=== PATIENT | male | born 1985 | race African-American/Black ===

== ENCOUNTER 2016-08-20 18:54 | Emergency (ER) | payer SELFPAY ==
[~2016-08-20] VITALS: Ht 185.4 cm; Wt 100.0 kg
[2016-08-20 19:52] VITALS: BP 130/83
[2016-08-20] MEDS ORDERED: DEXAMETHASONE SOD PHOS 4 MG/ML 5 ML VIAL IM ONE (20:15)
== END 2016-08-20 20:31 | disposition home or self-care (01) ==
LOC: EMS 18:57
DX: J40 Bronchitis, not specified as acute or chronic (principal); F17.200 Nicotine dependence, unspecified, uncomplicated; F12.90 Cannabis use, unspecified, uncomplicated; Z88.8 Allergy status to other drugs, medicaments and biological substances
CPT/HCPCS: 71020; 96372; 99284; 99406; J1100